=== PATIENT | female | born 1965 | race African-American/Black ===

== ENCOUNTER 2021-06-28 19:07 | Emergency (ER) | payer MEDICARE ==
[~2021-06-28] VITALS: Ht 157.5 cm; Wt 63.0 kg
[2021-06-28 20:00] VITALS: BP 147/86
[2021-06-28] MEDS ORDERED: KEFLEX500 MG PO ×2 (22:27→22:31)
== END 2021-06-28 23:10 | disposition home or self-care (01) ==
LOC: ED 19:07
DX: J06.9 Acute upper respiratory infection, unspecified (principal); G82.20 Paraplegia, unspecified; Z20.822 Contact with and (suspected) exposure to COVID-19

== ENCOUNTER → 2023-03-05 | Day surgery (SDC) | payer MEDICARE, MEDICAID ==
[~2023-03-05] MED LIST: KEFLEX500 MG PO; NORVASC PO
== END | disposition home or self-care (01) ==
LOC: ENDO 08:48
PROVIDERS: ATTEND Surgery
DX: Z12.11 Encounter for screening for malignant neoplasm of colon (principal); I10 Essential (primary) hypertension; G82.20 Paraplegia, unspecified; Z53.09 Procedure and treatment not carried out because of other contraindication

== ENCOUNTER 2023-03-06 07:15 | Day surgery (SDC) | payer MEDICARE, MEDICAID ==
[~2023-03-06] VITALS: Ht 157.5 cm; Wt 74.4 kg
[2023-03-06 07:58] VITALS: BP 156/85
== END 2023-03-06 08:50 | disposition home or self-care (01) ==
LOC: ENDO 07:15
PROVIDERS: ATTEND Surgery
DX: Z12.11 Encounter for screening for malignant neoplasm of colon (principal); Z53.8 Procedure and treatment not carried out for other reasons